=== PATIENT | female | born 1955 | race Caucasian/White ===

== ENCOUNTER 2019-01-01 10:30 | Outpatient (RCR) | payer BC, SELFPAY ==
--- NOTE | 2018-12-28 18:10 | HP.PTEVAL_ITS ---
Patient's Visit Information EDWARD VARGAS is a 63 year old F referred to Physical Therapy by Kel Bailey MD with a diagnosis of vertigo. Date of Evaluation: 12/28/18 Physical Therapist: Abraham Zayas DPT, OCS, CSCS - Visit Plan Frequency: 1-2x /Week Duration: 4-6 Weeks Plan: 1-2x/week for 2-4 weeks as needed. for positional treatments and reintegration of activity as needed. - Subjective Findings: 2 nights ago went to bed feeling good and woke up with spinning room after rolling onto left side. Lasted 15 seconds. Then it went away but she felt sick. Mayer drunk . Then looked up to make coffee it made her spin again which lasted 15 seconds. That has happended a dozen times in the last two days. Dry heaves. No previous history of this. Feels wrong in head in between episodes. Sleeps OK. Last episode was earlier today looking down. 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 Basic ADLs are OK with care. Hobbies: crafts and yard work btu has not been doing them. - Objective Walks I with decent balance. C/S aROM is fulla nd painfree but hesitant to look up. - R hallpike lucy. + L hallpike for up torsional nystagmus x 15 seconds. Treated wtih L Yazmin then - test. - Balance Scores Functional Gait Assessment Score: 28 % Disability: 6.6700 - Goals Goal 1:: Abolish dizzyness in bed. Goal Time Frame: 2-4 Weeks Goal 2:: Ready to return to work Goal Time Frame: 2-4 Weeks Goal 3:: Pt feel 100% better Goal Time Frame: 2-4 Weeks - Rehabilitation Potential Physical Therapy Diagnosis: BPPV L post canal Rehabilitation Potential: Good - Anticipated Interventions Patient/Client Instruction: Educate patient on: Condition, Plan of Care For the Purpose of:: To increase tolerance to activity/condition/position, To improve ability of physical actions for home/community/work/leisure Comment: postional treatments and ex For the Purpose of:: To increase tolerance to activity/condition/position Thank you for the opportunity to evaluate your patient. For Medicare and Medicare HMO plans, please review the plan of care and approve it. It will need to be FAXED BACK to us at [phone] for Medicare purposes. For Medicare only, by signing this I certify the plan of care. Please let me know if there are questions or concerns regarding this plan of care. Physician Signature: Date:
--- NOTE | 2019-02-19 15:09 | HP.PT.NRP ---
HP - Discharge Summary (1) - Patient Information EDWARD VARGAS was seen in my office for initial evaluation on 12/28/18. The following Plan of Care was established for this patient: Initial Frequency: 1-2x /Week Initial Duration: 4-6 Weeks - Anticipated Interventions Patient/Client Instruction: Educate patient on: Condition, Plan of Care For the Purpose of:: To increase tolerance to activity/condition/position, To improve ability of physical actions for home/community/work/leisure For the Purpose of:: To increase tolerance to activity/condition/position This patient was last seen in our office 01/01/19. Pertinent comments regarding their Physical therapy will appear below: Pt seen two visits for positional treatments. She was significantly better at last visit and was to f/u one more time but did not attend. At this point, it has been over 6 weeks and I will discontinue due to nonattendance. At this point I will be discontinuing this patient from physical therapy. I would be happy to see this patient again in the future if found appropriate by the physician. Thank you! Abraham Zayas, DPT, OCS, CSCS
== END 2019-01-01 19:00 | disposition home or self-care (01) ==
LOC: PT 10:30
PROVIDERS: Family Provider Physician Assistant; PCP Physician Assistant; Referring Provider Family Medicine; Visit Provider Family Medicine
DX: R42 Dizziness and giddiness (principal)
CPT/HCPCS: 97162; 97530

== ENCOUNTER 2021-05-14 13:36 | Inpatient (IN) | payer BC, MEDICARE, SELFPAY ==
[2021-05-14] VITALS (10 sets, daily range): BP systolic 99–116; BP diastolic 58–85; PULSE 84–115; RESP 13–18; TEMP 35.9–37.9; O2SAT 84–99; BMI 42.3; BMI 43.0
--- NOTE | 2021-05-14 14:00 | EKG12_ITS ---
Test Reason : ALT MENTAL Blood Pressure : / mmHG Vent. Rate : 109 BPM Atrial Rate : 109 BPM P-R Int : 132 ms QRS Dur : 082 ms QT Int : 322 ms P-R-T Axes : 060 -06 014 degrees QTc Int : 433 ms Sinus tachycardia Inferior infarct , age undetermined Cannot rule out Anterior infarct , age undetermined Abnormal ECG Confirmed by CAIT LIEBERMAN, ANTOINE ([id number]), social media editor FELISHA MCDANIEL ([id number]) on 05/18/2021 10:35:45 AM Referred By: RENAE Confirmed By:JHONNY CHAVIRA MD
--- NOTE | 2021-05-14 14:00 | RAD_ITS ---
STUDY: X-RAY CHEST REASON FOR EXAM: Female, 66 years old. Sob TECHNIQUE: Single AP portable view of the chest. COMPARISON: None. FINDINGS: EKG electrodes are seen. The lungs are clear and expanded. There is no demonstrated pleural abnormality. Normal size heart. Normal mediastinum and rachel. Normal visualized pulmonary arteries. Normal visualized aortic arch and descending thoracic aorta. There are diffuse degenerative changes of the visualized thoracic spine. Mild dextroscoliosis. Normal visualized ribs, clavicles, and shoulders. There is no demonstrated abnormality of the visualized soft tissue structures of the upper abdomen. RAD/Chest 1 View (Portable) IMPRESSION: Normal x-ray examination of the chest. Electronically Signed: Marco A Solares MD at 14:51 EDT , Service support ,
--- NOTE | 2021-05-14 14:02 | CT_ITS ---
We are attempting to reach an attending provider to discuss findings. An addendum with communication details will be sent when the communication is complete. HISTORY: hypoxia, recent surgery EXAMINATION: CTA Chest WO/W Contrast Injection TECHNIQUE: Helically acquired images were obtained of the chest following IV contrast as per pulmonary angiogram protocol with 3D reconstructions. A radiation dose optimization technique was used for this scan. IV Contrast dosage and agent: 100mL [id number]-370 COMPARISON: None FINDINGS: LUNGS, PLEURA AND LARGE AIRWAYS: Mild dependent and/or fibrotic changes without masses, consolidation, or edema. No pleural effusion or thickening. No pneumothorax. THYROID: 1.5 cm nodule left lobe thyroid, 1.3 cm nodule right lobe. PULMONARY ARTERIES: Normal in caliber. Filling defect in a segmental branch to the right upper lobe. AORTA AND GREAT VESSELS: No aneurysm or dissection. HEART AND PERICARDIUM: Heart size is normal. No pericardial effusion. No signs of right heart strain. MEDIASTINUM AND SAKSHI: No mediastinal or hilar adenopathy. Esophagus is unremarkable. No hiatal hernia. UPPER ABDOMEN: Transverse gallbladder distention 4.3 cm, no calcified gallstones. BONES: No acute or aggressive abnormality. CT/CTA Chest W/WO Contrast IMPRESSION: Study positive for pulmonary embolism. Nonspecific gallbladder distention. Consider correlation with gallbladder ultrasound. Bilateral thyroid nodules, largest 1.5 cm. Recommend routine thyroid ultrasound if not previously evaluated. Individualized dose optimization techniques were used for this CT. at 1522 Reported and signed by: Dominic Barrios MD Electronically Signed: Dominic Barrios MD at 15:21 EDT Tel , Service support ,
--- NOTE | 2021-05-14 14:03 | EDS_ITS ---
HPI History of Present Illness Chief Complaint: Alt LOC Informant: patient and EMS Onset/Context/Timing Onset: Today Narrative Narrative: Patient is a 66-year-old female that is status post left total knee performed by Dr. Martinez at [facility] on Tuesday, 3 days ago. Patient was very sleepy per her this morning. When home health came over she was sleeping in a chair and they could not arouse her. They spent 20 minutes trying to wake her up. EMS was called and patient was found to be significantly hypoxic. Patient's notes that she was very confused and out of it all morning and in and out of sleep. She does not wear oxygen normally. Patient was not given Narcan but there was concerned that maybe she took too much of her pain medication. Patient is currently on oxycodone. Patient is adamant that she did not take any extra of her pain medication. Patient denies any chest pain or shortness of breath. Nursing notes that when she falls asleep for respiratory rate diminishes and her O2 sat will drop. Patient does note that her knee felt a little warmer yesterday but denies any other complaints. She states that she is on antibiotic but she cannot recall which one. No other complaints at this time. Patient has any history of DVT or PE. [facility] Medical History (Updated 05/14/21 @ 21:[address] Elizabeth Greenfield, ) Degenerative disc disease Depression Diabetes mellitus type 2 in obese Hyperlipidemia Hypertension Osteoarthritis PUD (peptic ulcer disease) Home Medications acyclovir 400 mg PO TID 05/14/21 [History Last Taken 05/13/21] amlodipine 2.5 mg PO DAILY 05/14/21 [History Last Taken 05/13/21] aspirin 81 mg PO BID 05/14/21 [History Last Taken 1 Week Ago ~05/07/21] atorvastatin 80 mg PO QHS 05/14/21 [History Last Taken 05/13/21] baclofen 50 mg PO QHS 05/14/21 [History Last Taken 05/13/21] docusate sodium 100 mg PO BID 05/14/21 [History Last Taken 05/13/21] gabapentin 900 mg PO QHS 05/14/21 [History Last Taken 05/13/21] lisinopril-hydrochlorothiazide 1 tab PO BID 05/14/21 [History Last Taken 05/13/21] meloxicam 15 mg PO DAILY 05/14/21 [History Last Taken 05/13/21] metformin 1,000 mg PO DAILY 05/14/21 [History Last Taken 05/13/21] metformin 500 mg PO DAILY 05/14/21 [History Last Taken 05/13/21] omeprazole 40 mg PO BID 05/14/21 [History Last Taken 05/13/21] oxycodone 5 - 10 mg PO Q4H PRN 05/14/21 [History Last Taken 05/13/21] pantoprazole 40 mg PO DAILY 05/14/21 [History Last Taken 05/13/21] penicillin V potassium 500 mg PO 4X/DAY 05/14/21 [History Last Taken 05/13/21] ropinirole 0.25 mg PO BID 05/14/21 [History Last Taken Unknown] ropinirole 0.5 mg PO QHS 05/14/21 [History Last Taken 05/13/21] tizanidine 10 mg PO QHS 05/14/21 [History Last Taken 05/13/21] Allergy/AdvReac Type Severity Reaction Status Date / Time No Known Allergies Allergy Verified 05/14/21 13:42 Family History (Updated 05/14/21 @ 16:53 by Dee Cooper NP-C) Father Cancer Hypertension Sister Cancer Diabetes Mother Hypertension Diabetes Surgical History (Updated 05/14/21 @ 18:31 by Sweta De Jesus) History of left knee replacement History of tonsillectomy and adenoidectomy Social History Smoking Status: Never smoker alcohol intake: never substance use type: does not use ROS ROS ED Constitutional Constitutional ED: Denies chills or fever(s) Eyes Eyes: Denies change in vision ENT ENT ED: Denies rhinorrhea or sore throat Cardiovascular Cardiovascular: Denies chest pain or palpitations Respiratory/Chest Respiratory/Chest: Denies cough or dyspnea Gastrointestinal Gastrointestinal: Denies abdominal pain or vomiting Musculoskeletal Musculoskeletal: Reports other Details: Recent left knee surgery, normal postoperative pain reported ; Denies myalgias Integumentary Reports other Details: Slight redness and warmth around surgical site of her left knee ; Denies rash Neurologic Neurologic: Denies headache(s) or weakness Psychiatric Psychiatric: Denies anxiety or depression EXAM Physical Exam Const Vital Signs: 05/14/21 13:36 05/14/21 13:37 05/14/21 14:24 Temperature 99.7 F H Temperature Source Temporal Pulse Rate 115 H Respiratory Rate 13 Blood Pressure 99/85 H Blood Pressure Mean 89 Pulse Ox 94 84 94 Oxygen Delivery Method Nasal Cannula Room Air Nasal Cannula Oxygen Flow Rate (L/min) 3 6 05/14/21 16:15 Temperature 97.2 F L Temperature Source Temporal Pulse Rate 101 H Respiratory Rate 14 Blood Pressure 107/78 Blood Pressure Mean 87 Pulse Ox 99 Oxygen Delivery Method Room Air Oxygen Flow Rate (L/min) Positive well nourished and well developed General Appearance ED: well developed and NAD HEENT Reports moist mucous membranes Negative for trauma Eyes PERRL and EOMs intact bilaterally Eyes Narrative: No pinpoint pupils Neck supple and no JVD Chest Wall inspection of chest normal Resp normal respiratory effort and clear to auscultation bilaterally Auscultation: Negative for wheezes or diminished lung sounds Cardio regular rhythm and no murmurs Rate: tachycardic GI normal to inspection, nondistended, normoactive bowel sounds Extremity Extremity Narrative: Patient has mild tenderness and edema to her left knee associated with surgical incision from the left TKA. General Extremety ED: Yes edema General Extremity: edema Neuro oriented x3 and CN's II-XII intact bilaterally Sensorium / Orientation: alert Psych mental status grossly normal Mood & Affect: tearful Skin Skin Narrative: Surgical incision of the left knee with no associated drainage. No abnormal tenderness. Appears to be healing appropriately. There is some mild erythema medial to the incision around the knee however it is not particularly warm or tender. MDM MDM MDM Narrative Medical decision making narrative: Patient evaluated for hypoxia, confusion in the setting of her recent knee surgery. Patient arrives she has a low-grade temp and is tachycardic. Her blood pressure stable. She does not have pinpoint pupils or other signs concerning for acute opioid intoxication/overdose. Patient does have elevated creatinine at 2.63. Her high sensitive troponin is n ormal. Her BNP is normal. I's and concern for PE as the cause of her shortness of breath/hypoxia. Patient is found to have an acute PE. Given her WM as well as acute PE patient started on a heparin drip and given IV fluids. She will be admitted for further monitoring. She is requiring supplemental oxygen. Patient is agreeable with this plan of care. It is possible there could be a component of polypharmacy they contribute to her somnolence/confusion earlier however I suspect is more from her hypoxia. Lab Data Labs: Laboratory Results - last 24 hr 05/14/21 05/14/21 05/14/21 14:15 14:15 14:15 WBC 8.5 RBC 3.10 L Hgb 9.2 L Hct 29.0 L MCV 93.5 MCH 29.7 MCHC 31.7 L RDW Std Deviation 49.7 H RDW Coeff of Rex 14.6 Plt Count 251 MPV 10.2 Immature Gran % (Auto) 0.400 Neut % (Auto) 79.4 H Lymph % (Auto) 12.5 L Pleasants % (Auto) 7.2 Eos % (Auto) 0.4 Baso % (Auto) 0.1 Absolute Neuts (auto) 6.8 Absolute Lymphs (auto) 1.07 Nucleated RBC % 0 PT INR APTT Sodium 133 L Potassium 4.3 Chloride 98 Carbon Dioxide 29.0 Anion Gap 6 BUN 33 H Creatinine 2.63 H Estim Creat Clear Calc 15.32 Est GFR (MDRD) Af Amer 23 L Est GFR (MDRD) Non-Af 19 L BUN/Creatinine Ratio 12.5 Glucose 125 H Calcium 8.8 Troponin I High Sens 4.5 B-Natriuretic Peptide 20.5 05/14/21 16:15 WBC RBC Hgb Hct MCV MCH MCHC RDW Std Deviation RDW Coeff of Rex Plt Count MPV Immature Gran % (Auto) Neut % (Auto) Lymph % (Auto) Pleasants % (Auto) Eos % (Auto) Baso % (Auto) Absolute Neuts (auto) Absolute Lymphs (auto) Nucleated RBC % PT 14.4 INR 1.2 APTT 37.8 H Sodium Potassium Chloride Carbon Dioxide Anion Gap BUN Creatinine Estim Creat Clear Calc Est GFR (MDRD) Af Amer Est GFR (MDRD) Non-Af BUN/Creatinine Ratio Glucose Calcium Troponin I High Sens B-Natriuretic Peptide Radiography Diagnostic Testing: Radiology Impression Chest X-Ray 05/14/21 14:00 IMPRESSION: Normal x-ray examination of the chest. Electronically Signed: Marco A Solares MD at 14:51 EDT , Service support , Chest CTA 05/14/21 14:02 IMPRESSION: Study positive for pulmonary embolism. Nonspecific gallbladder distention. Consider correlation with gallbladder ultrasound. Bilateral thyroid nodules, largest 1.5 cm. Recommend routine thyroid ultrasound if not previously evaluated. Individualized dose optimization techniques were used for this CT. at 1522 Reported and signed by: Dominic Barrios MD Electronically Signed: Dominic Barrios MD at 15:21 EDT Tel , Service support , ADDENDUM: 05/14/21 1559 IMPRESSION: Study positive for pulmonary embolism. Nonspecific gallbladder distention. Consider correlation with gallbladder ultrasound. Bilateral thyroid nodules, largest 1.5 cm. Recommend routine thyroid ultrasound if not previously evaluated. Individualized dose optimization techniques were used for this CT. at 1522 Reported and signed by: Dominic Barrios MD N.B. : The above Results were Read Back by Dominic Barrios MD to Dr. Elizabeth Greenfield MD, and understanding confirmed on 05/14/2021 15:52:10 (ET). Electronically Signed: Dominic Barrios MD at 15:21 EDT Tel , Service support , Rhythm Strip Rhythm Strip: Sinus Tach Rate: 109 Ectopy: None EKG Initial EKG: Attestation: I personally reviewed and interpreted this EKG as follows: Interpretation: Sinus Tachycardia Comments: Sinus tachycardia at a rate of 109 Slight left axis deviation Normal intervals Nonspecific T wave inversion in lead III Discharge Plan Dx/Rx/DC Orders Clinical Impression: Pulmonary embolism on right, Acute kidney injury Disposition Disposition: Acute Care Hospital [facility] Discharge Date/Time: 05/14/21 16:57
[2021-05-14 14:25] LABS: Absolute Lymphocyte Count 1.07 X10^3/uL (0.83-4.51); Absolute Neutrophil Count 6.8 X10^3/uL (2.0-7.7); Basophil# 0.01 X10^3/uL; Basophil% 0.1 % (0-1); Eosinophil# 0.03 X10^3/uL; Eosinophils% 0.4 % (0-5); Hemoglobin 9.2 g/dL (12.0-15.0); Lymphocyte # 1.07 X10^3/ul (0.83-4.51); Lymphocyte % 12.5 % (19-41); Mean Corp Hgb Conc 31.7 g/dL (32-36); Mean Corpuscular Hgb 29.7 pg (27.0-32.0); Mean Corpuscular Volume 93.5 fL (81-99); Mean Platelet Vol. 10.2 fl (6.2-12.0); Monocyte# 0.61 X10^3/uL; Monocyte% 7.2 % (0-10); NRBC Flagged by Analyzer 0 % (0-5); Neutrophil # 6.78 X10^3/uL (2.7-7.7); Neutrophil % 79.4 % (47-70); Platelet Count 251 K/mm3 (150-450); RBC Distribution Width CV 14.6 % (11.6-14.6); RBC Distribution Width SD 49.7 fl (35.1-43.9); White Blood Count 8.5 K/mm3 (4.4-11.0)
[2021-05-14] MEDS: 0.9% Normal Saline 1,000 ML 999 ML IV (14:26)
[2021-05-14 14:42] LABS: BNP,B-Type NATRIURETIC PEPTIDE 20.5 pg/mL (0-100)
[2021-05-14 14:43] LABS: Anion Gap 6 (5-15); BUN 33 mg/dL (7-18); BUN/Creat Ratio 12.5 RATIO (10-20); Calcium,Total 8.8 mg/dL (8.5-10.1); Chloride 98 mmol/L (98-107); Creatinine, Serum 2.63 mg/dL (0.55-1.02); EST Glomerular Filtration Rate 19 mL/min (>60); Est Glom Filt Rate - Afr Amer 23 mL/min (>60); Estimated Creatinine Clearance 15.32 ml/min; Glucose 125 mg/dL (74-106); Potassium 4.3 mmol/L (3.5-5.1); Sodium Level 133 mmol/L (136-145); Troponin-I HS 4.5 pg/mL (3.0-53.7)
[2021-05-14] MEDS: Heparin Injection (Vial) 5,000 UNIT/ML VIAL 4000 UNIT IV (16:04)
[2021-05-14] MEDS: HEPARIN/D5w 25,000 UNITS 25,000 UNITS/250 ML IV.SOLN. 10 UNITS IV (16:11)
[2021-05-14 16:35] LABS: International Normalized Ratio 1.2; Partial Thromboplast Time 37.8 Seconds (24.1-36.2); Prothrombin Time (Protime)PT. 14.4 SECONDS (11.7-14.9)
--- NOTE | 2021-05-14 16:45 | HP.PCM_ITS ---
Documented by User: OPHELIA Nielsen 05/14/21 17:11 HPI - General General Date of Admission: 05/14/21 Date of Service: 05/14/21 Chief Complaint: Altered mental status HPI Narrative EDWARD VARGAS, is a 66 F who presents with family reports that patient was unresponsive for approximately 20 minutes. Patient underwent left knee surgery 05/11/[address] [facility] with Dr. Cox. Patient states that she has been taking her oxycodone that was prescribed postoperatively appropriately and not taking extra doses. Patient does not remember what happened. Patient family reports that patient had been doing fine until this morning. Upon EMS arrival patient was noted to be severely hypoxic, patient does not have history of respiratory issues and is not on O2 chronically. Patient denies chest pain s hortness of breath. Patient states that she has noticed that her knee has been a little warm and red starting yesterday. Patient is noted to be on penicillin however this was for an infected tooth and not for anything related to the surgery. [facility] Medical History CAD (coronary artery disease) Degenerative disc disease Depression Diabetes mellitus type 2 in obese Hyperlipidemia Hypertension Home Medications acyclovir 400 mg PO TID 05/14/21 [History Last Taken 05/13/21] amlodipine 2.5 mg PO DAILY 05/14/21 [History Last Taken 05/13/21] aspirin 81 mg PO BID 05/14/21 [History Last Taken 1 Week Ago ~05/07/21] atorvastatin 80 mg PO QHS 05/14/21 [History Last Taken 05/13/21] baclofen 50 mg PO QHS 05/14/21 [History Last Taken 05/13/21] docusate sodium 100 mg PO BID 05/14/21 [History Last Taken 05/13/21] gabapentin 900 mg PO QHS 05/14/21 [History Last Taken 05/13/21] lisinopril-hydrochlorothiazide 1 tab PO BID 05/14/21 [History Last Taken 05/13/21] meloxicam 15 mg PO DAILY 05/14/21 [History Last Taken 05/13/21] metformin 1,000 mg PO DAILY 05/14/21 [History Last Taken 05/13/21] metformin 500 mg PO DAILY 05/14/21 [History Last Taken 05/13/21] omeprazole 40 mg PO BID 05/14/21 [History Last Taken 05/13/21] oxycodone 5 - 10 mg PO Q4H PRN 05/14/21 [History Last Taken 05/13/21] pantoprazole 40 mg PO DAILY 05/14/21 [History Last Taken 05/13/21] penicillin V potassium 500 mg PO 4X/DAY 05/14/21 [History Last Taken 05/13/21] ropinirole 0.25 mg PO BID 05/14/21 [History Last Taken Unknown] ropinirole 0.5 mg PO QHS 05/14/21 [History Last Taken 05/13/21] tizanidine 10 mg PO QHS 05/14/21 [History Last Taken 05/13/21] Allergy/AdvReac Type Severity Reaction Status Date / Time No Known Allergies Allergy Verified 05/14/21 13:42 Family History (Updated 05/14/21 @ 16:53 by Dee Cooper, HISTOLOGY SUPERVISOR-C) Father Cancer Hypertension Sister Cancer Diabetes Mother Hypertension Diabetes Surgical History History of left knee replacement Social History Smoking Status: Never smoker alcohol intake: never substance use type: does not use ROS Constitutional Constitutional: Denies anorexia, chills, fatigue, fever(s) or weakness Cardiovascular Cardiovascular: Denies chest pain, edema or palpitations Respiratory/Chest Respiratory/Chest: Denies cough, shortness of breath at rest or shortness of breath with exertion Gastrointestinal Gastrointestinal: Denies abdominal pain, constipation, diarrhea, nausea or vomiting Genitourinary Genitourinary: Denies dysuria Musculoskeletal Musculoskeletal: Reports joint pain and muscle spasms; Denies back pain Integumentary Integumentary: Denies dry skin Neurologic Neurologic: Reports confusion; Denies abnormal gait, abnormal speech, dizziness or focal weakness Psychiatric Psychiatric: Reports depression; Denies anxiety Endocrine Endocrinology: Reports change in body appearance Hematologic/Lymphatic Hematologic/Lymphatic: Denies easy bleeding or easy bruising Vital Signs Vital Signs Vital Signs: 05/14/21 13:36 05/14/21 13:37 05/14/21 14:24 Temperature 99.7 F H Temperature Source Temporal Pulse Rate 115 H Respiratory Rate 13 Blood Pressure 99/85 H Blood Pressure Mean 89 Pulse Ox 94 84 94 Oxygen Delivery Method Nasal Cannula Room Air Nasal Cannula Oxygen Flow Rate (L/min) 3 6 05/14/21 16:15 Temperature 97.2 F L Temperature Source Temporal Pulse Rate 101 H Respiratory Rate 14 Blood Pressure 107/78 Blood Pressure Mean 87 Pulse Ox 99 Oxygen Delivery Method Room Air Oxygen Flow Rate (L/min) Weight Weight: 216 lb 7.903 oz Body Mass Index (BMI) 42.3 Physical Exam Const alert, oriented x3 and no apparent distress General Appearance: cooperative HEENT normocephalic and head/scalp atraumatic Eyes conjunctivae normal and no scleral icterus Neck supple and no JVD General: trachea midline Resp normal respiratory effort, normal air movement and clear to auscultation bilaterally Cardio regular rate, regular rhythm, S1 normal heart sound and S2 normal heart sound GI normal to inspection, nondistended, normoactive bowel sounds, soft to palpation and non-tender Extremity normal capillary refill and no clubbing, cyanosis or edema General Extremity: no tenderness to palpation of joints or extremities Skin General Skin Exam: turgor normal Lesions: no lesions Rashes: no rashes Wounds: wounds noted wild, surrounding erythema and other Postsurgical dressing dry and intact Neuro no focal motor deficits and no sensory deficits noted Speech: speech normal Motor Exam: Negative for general weakness Psych thought process normal and cooperative Mood & Affect: anxious Results Lab / Micro Data Result Diagrams: 05/14/21 14:15 05/14/21 14:15 Labs: Laboratory Results - last 24 hr 05/14/21 14:15: WBC 8.5, RBC 3.10 L, Hgb 9.2 L, Hct 29.0 L, MCV 93.5, MCH 29.7, MCHC 31.7 L, RDW Std Deviation 49.7 H, RDW Coeff of Rex 14.6, Plt Count 251, MPV 10.2, Immature Gran % (Auto) 0.400, Neut % (Auto) 79.4 H, Lymph % (Auto) 12.5 L, Stark % (Auto) 7.2, Eos % (Auto) 0.4, Baso % (Auto) 0.1, Absolute Neuts (auto) 6.8, Absolute Lymphs (auto) 1.07, Nucleated RBC % 0 05/14/21 14:15: Sodium 133 L, Potassium 4.3, Chloride 98, Carbon Dioxide 29.0, Anion Gap 6, BUN 33 H, Creatinine 2.63 H, Estim Creat Clear Calc 15.32, Est GFR (MDRD) Af Amer 23 L, Est GFR (MDRD) Non-Af 19 L, BUN/Creatinine Ratio 12.5, Glucose 125 H, Calcium 8.8, Troponin I High Sens 4.5 05/14/21 14:15: B-Natriuretic Peptide 20.5 05/14/21 16:15: PT 14.4, INR 1.2, APTT 37.8 H Rhythm Strip Rhythm Strip: Sinus Tach Rate: 109 Ectopy: None Radiology Impression Chest X-Ray 05/14/21 14:00 IMPRESSION: Normal x-ray examination of the chest. Electronically Signed: Marco A Sloares MD at 14:51 EDT , Service support , Chest CTA 05/14/21 14:02 IMPRESSION: Study positive for pulmonary embolism. Nonspecific gallbladder distention. Consider correlation with gallbladder ultrasound. Bilateral thyroid nodules, largest 1.5 cm. Recommend routine thyroid ultrasound if not previously evaluated. Individualized dose optimization techniques were used for this CT. at 1522 Reported and signed by: Dominic Barrios MD Electronically Signed: Dominic Barrios MD at 15:21 EDT Tel , Service support , ADDENDUM: 05/14/21 1559 IMPRESSION: Study positive for pulmonary embolism. Nonspecific gallbladder distention. Consider correlation with gallbladder ultrasound. Bilateral thyroid nodules, largest 1.5 cm. Recommend routine thyroid ultrasound if not previously evaluated. Individualized dose optimization techniques were used for this CT. at 1522 Reported and signed by: Dominic Barrios MD N.B. : The above Results were Read Back by Dominic Bariros MD to Dr. Elizabeth Greenfield MD, and understanding confirmed on 05/14/2021 15:52:10 (ET). Electronically Signed: Dominic Barrios MD at 15:21 EDT Tel , Service support , Assessment & Plan Assessment/Plan (1) Pulmonary embolism on right: (2) Acute kidney injury: PLAN: 1. Pulmonary embolism on right -Admit to PCU for cardiac monitoring -Heparin drip initiated in ER will continue, PTT per protocol -Encourage incentive spirometry -PT and OT to eval and treat, patient was receiving PT OT at home due to left total knee complete on 05/11/2021 -Oxygen per protocol patient currently on 2 L nasal cannula -Daily CBC and CMP 2. Acute kidney injury -Consult nephrology, case discussed with Dr. Johnson -Daily CMP, trend -Per labs obtained preoperatively 05/11/2021 patient BUN and creatinine normal at that time, BUN 20/creatinine 0.80 -Normal saline 60 mL/h ordered -Will hold nephrotoxic medications including hydrochlorothiazide, lisinopril, meloxicam, Metformin and tizanidine. Alterations in dosing made to baclofen, gabapentin, oxycodone as well. 3. Hypertension -As stated above due to WM will antihypertensives at this time, as needed hydralazine ordered -Vital signs per protocol, trend BP and heart rate 4. Diabetes mellitus type 2 -As stated above due to WM we will hold Metformin -AC at bedtime blood sugars with sliding scale insulin ordered 5. Back muscle spasms -Result of failed previous back surgery, due to WM alterations in antispastic's and neuropathic meds made. Once WM is resolved with encourage reevaluation of these medications and dosages. DVT prophylaxis-SCDs, patient on heparin drip This patient was seen by OPHELIA Nielsen under the supervision of Dr. Angel santos. Documented by User: Dr. Werner Ramirez MD 05/14/21 17:32 HPI - General General Date of Admission: 05/14/21 Date of Service: 05/14/21 HPI Narrative There is a 66-year-old female was brought in by EMS and she could not wake up for physical therapy. She was found snoring heavy and pulse ox in 60s. She was found significantly confused and hypoxic and was put on oxygen. He slowly woke up. As per ER physician decided not to get Narcan. She further said she did not had oxycodone, last dose was yesterday morning and she kept it after physic al therapy but before that she was almost out. She takes heavy dose of baclofen 50 mg at at bedtime, tizanidine, gabapentin and other medications. She has history of back surgery and recently had left knee replacement on past Tuesday in [facility]. In ED, she had CTPA which showed right upper lobe segmental PE. She is also found BUN/creatinine 33/2.63. As per patient her BUN/creatinine was normal prior to surgery. Actually it was 20/0.8 on 05/12/2021 therefore WM. Patient f mariangel states she was drinking less water as it did not have to get up for bathroom. Denies fever or chills. [facility] Medical History CAD (coronary artery disease) Degenerative disc disease Depression Diabetes mellitus type 2 in obese Hyperlipidemia Hypertension Home Medications acyclovir 400 mg PO TID 05/14/21 [History Last Taken 05/13/21] amlodipine 2.5 mg PO DAILY 05/14/21 [History Last Taken 05/13/21] aspirin 81 mg PO BID 05/14/21 [History Last Taken 1 Week Ago ~05/07/21] atorvastatin 80 mg PO QHS 05/14/21 [History Last Taken 05/13/21] baclofen 50 mg PO QHS 05/14/21 [History Last Taken 05/13/21] docusate sodium 100 mg PO BID 05/14/21 [History Last Taken 05/13/21] gabapentin 900 mg PO QHS 05/14/21 [History Last Taken 05/13/21] lisinopril-hydrochlorothiazide 1 tab PO BID 05/14/21 [History Last Taken 05/13/21] meloxicam 15 mg PO DAILY 05/14/21 [History Last Taken 05/13/21] metformin 1,000 mg PO DAILY 05/14/21 [History Last Taken 05/13/21] metformin 500 mg PO DAILY 05/14/21 [History Last Taken 05/13/21] omeprazole 40 mg PO BID 05/14/21 [History Last Taken 05/13/21] oxycodone 5 - 10 mg PO Q4H PRN 05/14/21 [History Last Taken 05/13/21] pantoprazole 40 mg PO DAILY 05/14/21 [History Last Taken 05/13/21] penicillin V potassium 500 mg PO 4X/DAY 05/14/21 [History Last Taken 05/13/21] ropinirole 0.25 mg PO BID 05/14/21 [History Last Taken Unknown] ropinirole 0.5 mg PO QHS 05/14/21 [History Last Taken 05/13/21] tizanidine 10 mg PO QHS 05/14/21 [History Last Taken 05/13/21] Allergy/AdvReac Type Severity Reaction Status Date / Time No Known Allergies Allergy Verified 05/14/21 13:42 Family History (Updated 05/14/21 @ 16:53 by Dee Cooper HISTOLOGY SUPERVISOR-C) Father Cancer Hypertension Sister Cancer Diabetes Mother Hypertension Diabetes Surgical History History of left knee replacement Social History Smoking Status: Never smoker alcohol intake: never substance use type: does not use Physical Exam Narrative Physical exam General: Alert, Oriented x3, Cooperative HEENT: Atraumatic, PERRLA, EOMI, Normocephalic Oral: No Gingival or Mucosal Lesions/ Ulcerations Neck: Supple, No JVD, Negative Carotid Bruits Lungs: Air entry diminished in bilateral lung bases. No crepitation/rhonchi Cardiovascular: Regular rate, Regular Rhythm, Normal S1, Normal S2, No murmurs Abdomen: Bowel Sounds Present, Soft, Non Tender, Non-Distended : No renal angle tenderness. No suprapubic tenderness. Extremities: Left TKR. Dressing is intact. No warmth or discharge from the operative site. Mild edema on lower legs, Capillary Refill Less than 3 Seconds Skin: No rashes, No breakdown Musculoskeletal/spine: Tenderness present on the lumbar spine. Spine surgery in the past Neurological: Cranial nerves II-XII grossly intact, Deep Tendon Reflexes 2+/4 and Symmetrical, Neuro grossly intact Psych/Mental Status: Anxious personality Results Lab / Micro Data Result Diagrams: 05/14/21 14:15 05/14/21 14:15 Assessment & Plan Assessment/Plan (1) Pulmonary embolism on right: (2) Acute kidney injury: PLAN: This patient was seen in conjunction with BLANE Price. I have independently interviewed and examined the patient and reviewed pertinent history, examination findings, laboratory and plan of management. I have reviewed the note and agree with the documented findings with the few additional points. In brief, patient is needed for acute encephalopathy probably from high dose of muscle relaxant and sedating medications. At home she is on tizanidine 10 mg nightly, ropinirole, gabapentin 900 mg nightly, baclofen 50 mg nightly and she claims she takes it for the back otherwise she cannot sleep. She is also on oxycodone 5 to 10 mg every 4 hourly as needed given after knee surgery. I told him we have to reduce the dose of muscle relaxant but patient was sedated. CTPA shows right upper lobe segmental PE. Started on IV heparin. Patient found WM probably prerenal. Started on IV fluid normal saline at 60/h after she got bolus 1 L in ED. Insolvency Consultant consulted. Family was discussed about possibility of SMITA and will try to control it. Other comorbidities as mentioned above Living will/advanced directive/end of life care: Patient does not have living will or advanced directive. After discussion of benefits/risks procedures involved with full code, DNR CC arrest and DNR CC, the patient opted for full code Patient does want artificial life support including intubation, tube feed, ventilator and/chest compression, central venous catheter, vasopressor and DC shock if needed Total time spent in [id number] encounter in discussion of advanced directive 16 minutes. I have discussed my assessment with BLANE Price and orders have been reviewed. Charges/Coding Visit Charges Inpatient E&M: 77217 Init Hosp L3 Procedures Hospitalists Procedures: 10754 Advncd Care Plan 30 Min
[2021-05-14] MEDS: 0.9% Normal Saline 1,000 ML 60 ML IV (18:54)
[2021-05-14] MEDS: Baclofen 10 MG Tablet 20 MG PO (21:50)
[2021-05-14] MEDS: Atorvastatin Calcium 80 MG Tablet PO (21:50)
[2021-05-14] MEDS: Gabapentin 300 MG Capsule PO (21:50)
[2021-05-14] MEDS: Docusate Sodium 100 MG Capsule PO (21:51)
[2021-05-14] MEDS: Pantoprazole Sodium 40 MG Tablet PO (21:51)
[2021-05-14] MEDS: Pramipexole Di-HCl 0.25 MG Tablet PO (21:51)
[2021-05-14] MEDS: Acetaminophen 325 MG Tablet 650 MG PO (21:51)
[2021-05-14 22:31] LABS: Bedside Glucose 149 mg/dL (70-110)
[2021-05-14 22:31] LABS: Partial Thromboplast Time 96.4 Seconds (24.1-36.2)
[2021-05-15] VITALS (9 sets, daily range): BP systolic 120–151; BP diastolic 64–83; PULSE 81–100; RESP 18–20; TEMP 36.7–36.9; O2SAT 91–99
[2021-05-15] MEDS: Acetaminophen 325 MG Tablet 650 MG PO (04:25)
[2021-05-15 04:43] LABS: Absolute Lymphocyte Count 1.67 X10^3/uL (0.83-4.51); Absolute Neutrophil Count 4.4 X10^3/uL (2.0-7.7); Basophil# 0.01 X10^3/uL; Basophil% 0.1 % (0-1); Eosinophil# 0.15 X10^3/uL; Eosinophils% 2.2 % (0-5); Hematocrit 27.8 % (37-47); Hemoglobin 8.8 g/dL (12.0-15.0); Lymphocyte # 1.67 X10^3/ul (0.83-4.51); Lymphocyte % 24.4 % (19-41); Mean Corp Hgb Conc 31.7 g/dL (32-36); Mean Corpuscular Hgb 29.7 pg (27.0-32.0); Mean Corpuscular Volume 93.9 fL (81-99); Mean Platelet Vol. 10.3 fl (6.2-12.0); Monocyte# 0.57 X10^3/uL; Monocyte% 8.3 % (0-10); NRBC Flagged by Analyzer 0 % (0-5); Neutrophil # 4.43 X10^3/uL (2.7-7.7); Neutrophil % 64.7 % (47-70); Platelet Count 227 K/mm3 (150-450); RBC Distribution Width CV 14.4 % (11.6-14.6); RBC Distribution Width SD 49.5 fl (35.1-43.9); Red Blood Count 2.96 M/mm3 (4.2-5.4); White Blood Count 6.9 K/mm3 (4.4-11.0)
[2021-05-15 04:53] LABS: Partial Thromboplast Time 42.1 Seconds (24.1-36.2)
[2021-05-15 05:09] LABS: ALB/GLOB Ratio 0.6 RATIO (0.9-2.4); AST(SGOT) 20 U/L (15-37); Alanine Aminotransfer ALT/SGPT 10 U/L (13-56); Albumin, Serum 2.4 g/dL (3.2-5.0); Alkaline Phosphatase 75 U/L (45-117); Anion Gap 6 (5-15); BUN 27 mg/dL (7-18); BUN/Creat Ratio 16.4 RATIO (10-20); Calcium,Total 8.4 mg/dL (8.5-10.1); Chloride 105 mmol/L (98-107); Creatinine, Serum 1.65 mg/dL (0.55-1.02); EST Glomerular Filtration Rate 33 mL/min (>60); Est Glom Filt Rate - Afr Amer 40 mL/min (>60); Estimated Creatinine Clearance 51.52 ml/min; Globulin 3.9 g/dL (2.2-4.2); Glucose 130 mg/dL (74-106); Potassium 4.2 mmol/L (3.5-5.1); Protein, Total 6.3 g/dL (6.4-8.2); Sodium Level 139 mmol/L (136-145)
[2021-05-15 06:55] LABS: Bedside Glucose 127 mg/dL (70-110)
--- NOTE | 2021-05-15 09:11 | DCINST_ITS ---
Discharge Instructions Diet Discharge Diet: Low fat / Low cholesterol and 2000 mg Sodium Diet Activity Weight Bearing Status: Weight bearing as tolerated Dressing / Incision Call your doctor if you observe: Fever of 101 or Higher, Coldness, Increased Pain, Numbness or Tingling, Change in Color, Inability to urinate, Inability to have a bowel movement, Shortness of breath, Dizziness, Fainting spells, Swelling in the ankles, Chest pain, Prolonged hiccupping, Increased palpitations (irregular heartbeat), Calf discomfort and Uncontrolled pain Follow Up Care Test Results: Test results from this visit will be discussed in further detail at your follow-up appointment, if applicable. Discharge Plan Admission Admit Date/Time: 05/14/21 16:45 Primary Reason for Your Visit: Right upper lobe segmental PE Attending Provider: Werner Ramirez Primary Care Provider: Eden Shankar Consulting Providers: Mayela Johnson Discharge Orders/Prescriptions Prescriptions: New Eliquis 5 mg tablet 5 mg PO BID Qty: 74 RF: 0 Continued atorvastatin 80 mg tablet 80 mg PO QHS RF: 0 penicillin V potassium 500 mg tablet 500 mg PO 4X/DAY RF: 0 amlodipine 2.5 mg tablet 2.5 mg PO DAILY RF: 0 docusate sodium 100 mg capsule 100 mg PO BID RF: 0 oxycodone 5 mg tablet 5 - 10 mg PO Q4H PRN (Reason: Pain) RF: 0 ropinirole 0.25 mg tablet 0.25 mg PO BID RF: 0 omeprazole 40 mg capsule,delayed release(DR/EC) 40 mg PO BID Qty: 60 RF: 0 Changed acyclovir 400 mg tablet 200 mg PO TID Qty: 0 RF: 0 ropinirole 0.25 mg tablet 0.25 mg PO QHS Qty: 0 RF: 0 baclofen 10 mg tablet 20 mg PO QHS Qty: 0 RF: 0 gabapentin 300 mg capsule 300 mg PO QHS Qty: 0 RF: 0 Held lisinopril-hydrochlorothiazide 20-12.5 mg tablet 1 tab PO BID RF: 0 Hold Instructions: Hold for 1 week and follow with PCP/assistant merchandiser with BMP and do accordingly meloxicam 15 mg tablet 15 mg PO DAILY RF: 0 Hold Instructions: Hold for 1 week and follow with PCP/assistant merchandiser with BMP and do accordingly metformin 1,000 mg tablet 500 mg PO DAILY RF: 0 Hold Instructions: Hold for 1 week and follow with PCP/assistant merchandiser with BMP and do accordingly metformin 1,000 mg tablet 1,000 mg PO DAILY RF: 0 Hold Instructions: Hold for 1 week and follow with PCP/assistant merchandiser with BMP and do accordingly Discontinued tizanidine 4 mg tablet 10 mg PO QHS RF: 0 aspirin 81 mg tablet,delayed release (DR/EC) 81 mg PO BID RF: 0 pantoprazole 40 mg tablet,delayed release (DR/EC) 40 mg PO DAILY RF: 0 Referrals / Follow Up: Eden Shankar PA [Primary Care Provider] -
--- NOTE | 2021-05-15 09:11 | DS.PCM_ITS ---
Providers Date of Admission: 05/14/21 Primary Care Physician: KATHY Canela Consultations 05/14/21 15:58 Consult: Nephrology Routine Consulting Provider: Mayela Johnson Reason for Consult: ckd 4 or WM? Had contrast for CTPA EMERGENT Consult: No MD Notified: Yes Date Notified: 05/14/21 Time Notified: 15:58 Method of Notification: Verbal Reason For Visit: WM / PE Diagnosis Discharge Diagnosis (1) Pulmonary embolism on right: Status: Acute Code(s): I26.99 - Other pulmonary embolism without acute cor pulmonale (2) Acute kidney injury: Status: Acute Code(s): N17.9 - Acute kidney failure, unspecified Medications at Discharge Home Medications amlodipine 2.5 mg PO DAILY 05/14/21 atorvastatin 80 mg PO QHS 05/14/21 docusate sodium 100 mg PO BID 05/14/21 lisinopril-hydrochlorothiazide 1 tab PO BID 05/14/21 meloxicam 15 mg PO DAILY 05/14/21 metformin 1,000 mg PO DAILY 05/14/21 metformin 500 mg PO DAILY 05/14/21 oxycodone 5 - 10 mg PO Q4H PRN 05/14/21 penicillin V potassium 500 mg PO 4X/DAY 05/14/21 ropinirole 0.25 mg PO BID 05/14/21 acyclovir 200 mg PO TID #0 tab 05/15/21 apixaban [Eliquis] 5 mg PO BID #74 tab 05/15/21 baclofen 20 mg PO QHS #0 tab 05/15/21 gabapentin 300 mg PO QHS #0 cap 05/15/21 omeprazole 40 mg PO BID #60 cap 05/15/21 ropinirole 0.25 mg PO QHS #0 tab 05/15/21 Hospital Course Summary of Care Provided Hospital Course: The patient was admitted for altered mental status/unresponsive episode of about 20 minutes found by healthcare home physical therapist. She was also found hypoxic with pulse ox in 60s. Patient prior creatinine 0.8 on 04/[address] angiogram in ER and found to have right upper lobe PE. Basic labs revealed creatinine was elevated 2.63 but normal potassium consistent with acute kidney injury prerenal etiology. BUN 33. Patient was admitted in PCU. Started on IV heparin. Patient has unresponsive/acute encephalopathy state from high dose of muscle relaxant and sedating medications. At home she is on tizanidine 10 mg nightly, ropinirole, gabapentin 900 mg nightly, baclofen 50 mg nightly and she claims she takes it for the back otherwise she cannot sleep. She is also on oxycodone 5 to 10 mg every 4 hourly as needed given after knee surgery. Baclofen dose was decreased to 20 mg at night and gabapentin to 300 mg at further unresponsive episode and also for decreased creatinine clearance. Tizanidine discontinued. Patient had 1 L of normal saline bolus and continued 16/h. Education Analyst co nsulted. Family was discussed about possibility of SMITA but creatinine improved to 1.65. BUN 27. Advised to follow-up with [facility] in 1 week with public health program manager. Heparin changed to Eliquis after discussion with pharmacist. Prescription given. Patient also has multiple comorbidities which include diabetes mellitus type 2, chronic back pain with muscle spasm, hypertension and morbid obesity. Stable Discharge medication reconciliation done. Discharge follow-up instructions completed. Discharge process discussed with the patient and all questions were answered to patient's satisfaction. Discharge home with home physical therapy. Follow-up orthopedic surgeon in 1 week. Total time spent, exact 35 minutes on discharge meds reconciliation, examination, coordination of care with nurses and ancillary staff, review of imaging and blood test and discussion with the patient on follow-up instruct ions Physical Exam Narrative Seen and examined. Patient is pleased that she slept well on the lower dose of baclofen 20 mg. She was advised not to take tizanidine. Avoid taking oxycodone, anxiolytic, muscle relaxant at same time General: Alert, Oriented x3, Cooperative HEENT: Atraumatic, PERRLA, EOMI, Normocephalic Oral: No Gingival or Mucosal Lesions/ Ulcerations Neck: Supple, No JVD, Negative Carotid Bruits Lungs: Air entry diminished in bilateral lung bases. No crepitation/rhonchi Cardiovascular: Regular rate, Regular Rhythm, Normal S1, Normal S2, No murmurs Abdomen: Bowel Sounds Present, Soft, Non Tender, Non-Distended : No renal angle tenderness. No suprapubic tenderness. Extremities: Left TKR. Dressing is intact. No warmth or discharge from the operative site. Mild edema on lower legs, Capillary Refill Less than 3 Seconds Skin: No rashes, No breakdown Musculoskeletal/spine: Tenderness present on the lumbar spine. Neurological: Cranial nerves II-XII grossly intact, Deep Tendon Reflexes 2+/4 an d Symmetrical, Neuro grossly intact Psych/Mental Status: Appropriate. Weight / BMI Weight Weight: 211 lb 10.3 oz Body Mass Index (BMI) 43.0 ABG / Lab / Microbiology Data Result Diagrams: 05/15/21 04:36 05/15/21 04:36 Laboratory: Laboratory Results - last 24 hr 05/14/21 14:15: WBC 8.5, RBC 3.10 L, Hgb 9.2 L, Hct 29.0 L, MCV 93.5, MCH 29.7, MCHC 31.7 L, RDW Std Deviation 49.7 H, RDW Coeff of Rex 14.6, Plt Count 251, MPV 10.2, Immature Gran % (Auto) 0.400, Neut % (Auto) 79.4 H, Lymph % (Auto) 12.5 L , [place] % (Auto) 7.2, Eos % (Auto) 0.4, Baso % (Auto) 0.1, Absolute Neuts (auto) 6.8, Absolute Lymphs (auto) 1.07, Nucleated RBC % 0 05/14/21 14:15: Sodium 133 L, Potassium 4.3, Chloride 98, Carbon Dioxide 29.0, Anion Gap 6, BUN 33 H, Creatinine 2.63 H, Estim Creat Clear Calc 15.32, Est GFR (MDRD) Af Amer 23 L, Est GFR (MDRD) Non-Af 19 L, BUN/Creatinine Ratio 12.5, Glucose 125 H, Calcium 8.8, Troponin I High Sens 4.5 05/14/21 14:15: B-Natriuretic Peptide 20.5 05/14/21 16:15: PT 14.4, INR 1.2, APTT 37.8 H 05/14/21 21:37: POC Glucose 149 H 05/14/21 22:04: APTT 96.4 H* 05/15/21 04:36: WBC 6.9, RBC 2.96 L, Hgb 8.8 L, Hct 27.8 L, MCV 93.9, MCH 29.7, MCHC 31.7 L, RDW Std Deviation 49.5 H, RDW Coeff of Rex 14.4, Plt Count 227, MPV 10.3, Immature Gran % (Auto) 0.300, Neut % (Auto) 64.7, Lymph % (Auto) 24.4, [place] % (Auto) 8.3, Eos % (Auto) 2.2, Baso % (Auto) 0.1, Absolute Neuts (auto) 4.4, Absolute Lymphs (auto) 1.67, Nucleated RBC % 0 05/15/21 04:36: Sodium 139, Potassium 4.2, Chloride 105, Carbon Dioxide 28.0, Anion Gap 6, BUN 27 H, Creatinine 1.65 H, Estim Creat Clear Calc 51.52, Est GFR (MDRD) Af Amer 40 L, Est GFR (MDRD) Non-Af 33 L, BUN/Creatinine Ratio 16.4, Glucose 130 H, Calcium 8.4 L, Total Bilirubin 0.60, AST 20, ALT 10 L, Alkaline Phosphatase 75, Total Protein 6.3 L, Albumin 2.4 L, Globulin 3.9, Albumin/Globulin Ratio 0.6 L 05/15/21 04:36: APTT 42.1 H 05/15/21 06:45: POC Glucose 127 H Radiography Diagnostic Testing: Radiology Impression Chest X-Ray 05/14/21 14:00 IMPRESSION: Normal x-ray examination of the chest. Electronically Signed: Marco A Solares MD at 14:51 EDT , Service support , Chest CTA 05/14/21 14:02 IMPRESSION: Study positive for pulmonary embolism. Nonspecific gallbladder distention. Consider correlation with gallbladder ultrasound. Bilateral thyroid nodules, largest 1.5 cm. Recommend routine thyroid ultrasound if not previously evaluated. Individualized dose optimization techniques were used for this CT. at 1522 Reported and signed by: Dominic Barrois MD Electronically Signed: Dominic Barrios MD at 15:21 EDT Tel , Service support , ADDENDUM: 05/14/21 1559 IMPRESSION: Study positive for pulmonary embolism. Nonspecific gallbladder distention. Consider correlation with gallbladder ultrasound. Bilateral thyroid nodules, largest 1.5 cm. Recommend routine thyroid ultrasound if not previously evaluated. Individualized dose optimization techniques were used for this CT. at 1522 Reported and signed by: Dominic Barrios MD N.B. : The above Results were Read Back by Dominic Barrios MD to Dr. Elizabeth Greenfield MD, and understanding confirmed on 05/14/2021 15:52:10 (ET). Electronically Signed: Dominic Barrios MD at 15:21 EDT Tel , Service support , Meaningful Use Info Meaningful Use Diagnoses (Choose all that apply): None applicable and VTE VTE Anticoag overlap given w/in hospital stay or rx'd at [place]?: No Pt receive overlap for 5 days?: No Reason overlap not ordered, prescribed, or given for 5 days: Treatment Not Indicated Discharge Plan Admission Admit Date/Time: 05/14/21 16:45 Primary Reason for Your Visit: Right upper lobe segmental PE Attending Provider: Werner Ramirez Primary Care Provider: Eden Shankar Consulting Providers: Mayela Johnson Discharge Orders/Prescriptions Prescriptions: New Eliquis 5 mg tablet 5 mg PO BID Qty: 74 RF: 0 Continued atorvastatin 80 mg tablet 80 mg PO QHS RF: 0 penicillin V potassium 500 mg tablet 500 mg PO 4X/DAY RF: 0 amlodipine 2.5 mg tablet 2.5 mg PO DAILY RF: 0 docusate sodium 100 mg capsule 100 mg PO BID RF: 0 oxycodone 5 mg tablet 5 - 10 mg PO Q4H PRN (Reason: Pain) RF: 0 ropinirole 0.25 mg tablet 0.25 mg PO BID RF: 0 omeprazole 40 mg capsule,delayed release(DR/EC) 40 mg PO BID Qty: 60 RF: 0 Changed acyclovir 400 mg tablet 200 mg PO TID Qty: 0 RF: 0 ropinirole 0.25 mg tablet 0.25 mg PO QHS Qty: 0 RF: 0 baclofen 10 mg tablet 20 mg PO QHS Qty: 0 RF: 0 gabapentin 300 mg capsule 300 mg PO QHS Qty: 0 RF: 0 Held lisinopril-hydrochlorothiazide 20-12.5 mg tablet 1 tab PO BID RF: 0 Hold Instructions: Hold for 1 week and follow with PCP/public health program manager with [facility] and do accordingly meloxicam 15 mg tablet 15 mg PO DAILY RF: 0 Hold Instructions: Hold for 1 week and follow with PCP/public health program manager with [facility] and do accordingly metformin 1,000 mg tablet 500 mg PO DAILY RF: 0 Hold Instructions: Hold for 1 week and follow with PCP/public health program manager with [facility] and do accordingly metformin 1,000 mg tablet 1,000 mg PO DAILY RF: 0 Hold Instructions: Hold for 1 week and follow with PCP/public health program manager with [facility] and do accordingly Discontinued tizanidine 4 mg tablet 10 mg PO QHS RF: 0 aspirin 81 mg tablet,delayed release (DR/EC) 81 mg PO BID RF: 0 pantoprazole 40 mg tablet,delayed release (DR/EC) 40 mg PO DAILY RF: 0 Referrals / Follow Up: Mayela Johnson MD [STAFF PHYSICIAN] - In 1 Week (Follow with [facility] for acute kidney injury) Eden Shankar PA [Primary Care Provider] - In 1 Week Disposition Disposition (needs filled in before D/C Order can be placed): Home, Self Care
[2021-05-15] MEDS: amLODIPine 2.5 MG Tablet PO (09:44)
[2021-05-15] MEDS: Pramipexole Di-HCl 0.125 MG Tablet PO ×2 (09:44→16:45)
[2021-05-15] MEDS: Aspirin E.C. 81 MG Tablet PO ×2 (09:44→16:45)
[2021-05-15] MEDS: Pantoprazole Sodium 40 MG Tablet PO (09:44)
[2021-05-15] MEDS: Docusate Sodium 100 MG Capsule PO (09:44)
[2021-05-15] MEDS: 0.9% Normal Saline 1,000 ML 60 ML IV (09:55)
--- NOTE | 2021-05-15 10:11 | CASEMGMT ---
NATASHA LOJA assessment: Face to Face with patient for initial transition planning/care coordination assessment. NATASHA LOJA introduced self and role at [facility], pt voices understanding and consents to assessment. Pt is sitting up in chair in no distress on room air. Pt is A/Ox4 and answers all questions appropriately. Care providers, pharmacy, and demographics verified. Presentation: Pt was difficult to arouse by /HHC and sats were in the 60s Admitting dx: Hypoxia, PE PCP: Raad Specialists: Brady sanchez-[facility] neuro; diaz Martinez Preferred Pharmacy: [facility] to follow for Eliquis coverage/co-pay Insurance: Martha/MCRA Prescription Benefit: Martha Living Will/HPOA: Pt states has LW/HPOA and is aware that they are not on file at [facility]. LNOK: Inocencio Eamon, Living Arrangements: Pt states lives with in 1 story home with 4 steps in and states no concerns at home. Pt states is independent with ADL's. Transportation: Pt states drives self and states no transportation concerns. DME/HHC: Pt states has crutches and a walker. Pt states no preference for DME company, if pt qualifies for home oxygen at discharge. Pt states is current with [facility] for PT/OT s/p knee surgery last tuesday at [facility]. Pt states no hx of SNF. Pt states no concerns with going home at time of discharge. 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 Pt states does not smoke cigarettes or drink ETOH. Pt states no further concerns/needs. CM to follow for any further discharge planning/needs. Advised pt to ask for CM if any further questions/concerns/needs arise, voices understanding. Pt Goal: Home Plan: Home w/ [facility]. [place] ANTASHA LOJA
--- NOTE | 2021-05-15 10:32 | CASEMGMT ---
Addendum entered by Amna Pappas 05/15/21 12:21: SN added to HHC order as pt is anxious about meds at home. CC notified and new order faxed. Rabia KAUR CM Addendum entered by Amna Pappas 05/15/21 11:31: Pt also to be sent home on Eliquis and med e-scribed to [facility] previously. Call to [facility] to check coverage/co-pay and per tech, cost is $115. Pt provided with Eliquis 30 day free trial card and $10 co-pay card with instruction. Rabia KAUR CM Addendum entered by Amna Pappas 05/15/21 11:28: Per Hua, pt does not qualify for home oxygen. [facility] order, D/C instructions faxed to [facility] at this time. Summary to be faxed once obtained. Rabia KAUR CM Original Note: Call from [facility] requesting [facility] order and d/c summ/instructions when pt discharged. They state pt is active with PT/OT. Rabia KAUR CM
[2021-05-15] MEDS: oxyCODONE 5 MG Tablet PO (11:14)
[2021-05-15 11:18] LABS: Partial Thromboplast Time 67.2 Seconds (24.1-36.2)
[2021-05-15 12:06] LABS: Bedside Glucose 183 mg/dL (70-110)
--- NOTE | 2021-05-15 13:45 | PCM.CONS.R ---
Assessment & Plan Assessment/Plan (1) Acute kidney injury: PLAN: ? baseline creatinine unknown. admitted with 2.8, down to 1.6. was taking NSAIDs prior to admit after recent knee surgery no urinary complaints since cr is better no further work up needed asking to go home. ok from my end. will arrange follow up dc NSAIDs, lisinopril and HCTZ at the time of discharge danica mishra family at bedside HPI Consult Data Date of Consult: 05/15/21 HPI Narrative HPI Narrative: EDWARD VARGAS, is a 66 F who presents to the hospital yesterday with confusion, unresponsiveness. renal consulted for WM. PCP is Aly Shankar here in town. no prior CKD. admit cr 2.8 today 1.6. currently denies any complaints. recent left knee surgery. no urinary complaints. on NSAIDs prior to admit. breathing is ok. ? baseline cr. diagnosed with PE. started on anticoagulation, heparin drip and now eliquis. [facility] Medical History (Updated 05/14/21 @ 21:[address] Elizabeth Greenfield, DO) Degenerative disc disease Depression Diabetes mellitus type 2 in obese Hyperlipidemia Hypertension Osteoarthritis PUD (peptic ulcer disease) Home Medications amlodipine 2.5 mg PO DAILY 05/14/21 [History Last Taken 05/13/21] atorvastatin 80 mg PO QHS 05/14/21 [History Last Taken 05/13/21] docusate sodium 100 mg PO BID 05/14/21 [History Last Taken 05/13/21] lisinopril-hydrochlorothiazide 1 tab PO BID 05/14/21 [History Last Taken 05/13/21] meloxicam 15 mg PO DAILY 05/14/21 [History Last Taken 05/13/21] metformin 1,000 mg PO DAILY 05/14/21 [History Last Taken 05/13/21] metformin 500 mg PO DAILY 05/14/21 [History Last Taken 05/13/21] oxycodone 5 - 10 mg PO Q4H PRN 05/14/21 [History Last Taken 05/13/21] penicillin V potassium 500 mg PO 4X/DAY 05/14/21 [History Last Taken 05/13/21] ropinirole 0.25 mg PO BID 05/14/21 [History Last Taken Unknown] acyclovir 200 mg PO TID #0 tab 05/15/21 [Rx Last Taken 05/13/21] apixaban [Eliquis] 5 mg PO BID #74 tab 05/15/21 [Rx Last Taken Unknown] baclofen 20 mg PO QHS #0 tab 05/15/21 [Rx Last Taken 05/13/21] gabapentin 300 mg PO QHS #0 cap 05/15/21 [Rx Last Taken 05/13/21] omeprazole 40 mg PO BID #60 cap 05/15/21 [Rx Last Taken 05/13/21] ropinirole 0.25 mg PO QHS #0 tab 05/15/21 [Rx Last Taken 05/13/21] Allergy/AdvReac Type Severity Reaction Status Date / Time No Known Allergies Allergy Verified 05/14/21 13:42 Family History (Updated 05/14/21 @ 16:53 by Dee Cooper NP-C) Father Cancer Hypertension Sister Cancer Diabetes Mother Hypertension Diabetes Surgical History (Updated 05/14/21 @ 18:31 by Sweta De Jesus) History of left knee replacement History of tonsillectomy and adenoidectomy Social History Smoking Status: Never smoker alcohol intake: never substance use type: does not use ROS ROS Narrative negative except above Physical Exam Narrative Alert awake oriented x 3 no obvious distress no pallor no icterus no JVD s1s2 no murmurs lungs clear abdomen soft no organomegaly no edema no cyanosis left knee bandaged Lab / Micro Data Result Diagrams: 05/15/21 04:36 05/15/21 04:36 Labs: Laboratory Results - last 24 hr 05/14/21 14:15: WBC 8.5, RBC 3.10 L, Hgb 9.2 L, Hct 29.0 L, MCV 93.5, MCH 29.7, MCHC 31.7 L, RDW Std Deviation 49.7 H, RDW Coeff of Rex 14.6, Plt Count 251, MPV 10.2, Immature Gran % (Auto) 0.400, Neut % (Auto) 79.4 H, Lymph % (Auto) 12.5 L, [place] % (Auto) 7.2, Eos % (Auto) 0.4, Baso % (Auto) 0.1, Absolute Neuts (auto) 6.8, Absolute Lymphs (auto) 1.07, Nucleated RBC % 0 05/14/21 14:15: Sodium 133 L, Potassium 4.3, Chloride 98, Carbon Dioxide 29.0, Anion Gap 6, BUN 33 H, Creatinine 2.63 H, Estim Creat Clear Calc 15.32, Est GFR (MDRD) Af Amer 23 L, Est GFR (MDRD) Non-Af 19 L, BUN/Creatinine Ratio 12.5, Glucose 125 H, Calcium 8.8, Troponin I High Sens 4.5 05/14/21 14:15: B-Natriuretic Peptide 20.5 05/14/21 16:15: PT 14.4, INR 1.2, APTT 37.8 H 05/14/21 21:37: POC Glucose 149 H 05/14/21 22:04: APTT 96.4 H* 05/15/21 04:36: WBC 6.9, RBC 2.96 L, Hgb 8.8 L, Hct 27.8 L, MCV 93.9, MCH 29.7, MCHC 31.7 L, RDW Std Deviation 49.5 H, RDW Coeff of Rex 14.4, Plt Count 227, MPV 10.3, Immature Gran % (Auto) 0.300, Neut % (Auto) 64.7, Lymph % (Auto) 24.4, [place] % (Auto) 8.3, Eos % (Auto) 2.2, Baso % (Auto) 0.1, Absolute Neuts (auto) 4.4, Absolute Lymphs (auto) 1.67, Nucleated RBC % 0 05/15/21 04:36: Sodium 139, Potassium 4.2, Chloride 105, Carbon Dioxide 28.0, Anion Gap 6, BUN 27 H, Creatinine 1.65 H, Estim Creat Clear Calc 51.52, Est GFR (MDRD) Af Amer 40 L, Est GFR (MDRD) Non-Af 33 L, BUN/Creatinine Ratio 16.4, Glucose 130 H, Calcium 8.4 L, Total Bilirubin 0.60, AST 20, ALT 10 L, Alkaline Phosphatase 75, Total Protein 6.3 L, Albumin 2.4 L, Globulin 3.9, Albumin/Globulin Ratio 0.6 L 05/15/21 04:36: APTT 42.1 H 05/15/21 06:45: POC Glucose 127 H 05/15/21 10:53: APTT 67.2 H 05/15/21 11:58: POC Glucose 183 H Rhythm Strip Rhythm Strip: Sinus Tach Rate: 109 Ectopy: None Radiology Impression Chest X-Ray 05/14/21 14:00 IMPRESSION: Normal x-ray examination of the chest. Electronically Signed: Marco A Solares MD at 14:51 EDT , Service support , Chest CTA 05/14/21 14:02 IMPRESSION: Study positive for pulmonary embolism. Nonspecific gallbladder distention. Consider correlation with gallbladder ultrasound. Bilateral thyroid nodules, largest 1.5 cm. Recommend routine thyroid ultrasound if not previously evaluated. Individualized dose optimization techniques were used for this CT. at 1522 Reported and signed by: Dominic Barrios MD Electronically Signed: Dominic Barrios MD at 15:21 EDT Tel , Service support , ADDENDUM: 05/14/21 1559 IMPRESSION: Study positive for pulmonary embolism. Nonspecific gallbladder distention. Consider correlation with gallbladder ultrasound. Bilateral thyroid nodules, largest 1.5 cm. Recommend routine thyroid ultrasound if not previously evaluated. Individualized dose optimization techniques were used for this CT. at 1522 Reported and signed by: Dominic Barrios MD N.B. : The above Results were Read Back by Dominic Barrios MD to Dr. Elizabeth Greenfield MD, and understanding confirmed on 05/14/2021 15:52:10 (ET). Electronically Signed: Dominic Barrios MD at 15:21 EDT Tel , Service support ,
[2021-05-15] MEDS: Ondansetron 4 MG/2 ML Vial IV (17:15)
[2021-05-15 17:36] LABS: Partial Thromboplast Time 57.3 Seconds (24.1-36.2)
== END 2021-05-15 17:55 | disposition home health service (06) | DRG 175 ==
LOC: ED 15:03 → PCU 16:43
PROVIDERS: Family Medicine; Nurse Practitioner Family; Admitting Provider Internal Medicine; Emergency Provider Emergency Medicine; PCP Physician Assistant; Visit Provider Internal Medicine
DX: I26.99 Other pulmonary embolism without acute cor pulmonale (principal); G92 Toxic encephalopathy; N17.9 Acute kidney failure, unspecified; Z68.41 Body mass index [BMI] 40.0-44.9, adult; T42.8X5A Adverse effect of antiparkinsonism drugs and other central muscle-tone depressants, initial encounter; T42.6X5A Adverse effect of other antiepileptic and sedative-hypnotic drugs, initial encounter; Y92.9 Unspecified place or not applicable; R09.02 Hypoxemia; M62.830 Muscle spasm of back; M54.9 Dorsalgia, unspecified; G89.29 Other chronic pain; I25.10 Atherosclerotic heart disease of native coronary artery without angina pectoris; E11.9 Type 2 diabetes mellitus without complications; I10 Essential (primary) hypertension; E78.5 Hyperlipidemia, unspecified; M19.90 Unspecified osteoarthritis, unspecified site; F32.9 Major depressive disorder, single episode, unspecified; E66.01 Morbid (severe) obesity due to excess calories; Z79.84 Long term (current) use of oral hypoglycemic drugs; Z79.899 Other long term (current) drug therapy; Z87.11 Personal history of peptic ulcer disease; Z96.652 Presence of left artificial knee joint
CPT/HCPCS: 36415; 71045; 71275; 80048; 80053; 82962; 83880; 84484; 85025; 85610; 85730; 93005; 97163; 97167; 97802; 99251; 99285; J7030; Q9967; A4216; G0463; J2405

== ENCOUNTER 2023-03-03 16:30 | Outpatient (RCR) | payer BC, SELFPAY ==
--- NOTE | 2023-02-01 18:41 | HP.PTEVAL_ITS ---
Patient's Visit Information EDWARD VARGAS is a 67 year old F referred to Physical Therapy by Dr. Ben Pardo MD with a diagnosis of R hip OA. Date of Evaluation: 02/01/23 Physical Therapist: Abraham Zayas DPT, OCS, CSCS - Visit Plan Frequency: 2x /Week Duration: 4-6 Weeks Plan: 2x/week for 4-6 aquatic therapy for. 1. R hip and knee ROM focussin knee ext and flexion and hip extension. 2. stretch prirformis and quad. 3. strength of hip and knee B to I. 4. calorie burning. work all to I as patient plans to join if helpful and can give stretches and ROM as HEP also. - Subjective R hip hurts. It aches something terrible. has to sleep on it to get any sleep. Needs a new right knee. Got a L TKA 2 yrs ago and got blood clot and nearly so is gunshy. R hip hurts posteriorly. It has hurt for 4-5 months with insidious onset. it was only slightly painful for a long time before then. Worse in the evening. Had previous back surgery and L45 pain on top of hip. Cannot stand very long. Hip x ray and doc thought it was the muscles. 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 Activites include working at home but has to stop often. Basic aDLS dress , bathroom, shower I. Hobbies: Crafts sitting. Exercises : no because it hurts. Avoids R LE on steps, weak. - Pain R hip Pain Intensity (Out of 10): 6 Pain Intensity Range: 6, 9 - Objective R varus at knee and diminished stance time on R due to hip more than knee discomfort. Steps avoids R due to knee and hip pain. R knee AROM -6 to 100, L knee 0-110. Pain endr range R knee. Hip aROM is WFL and symmetrical but end range IR causes some R posterior hip pain, + FADDIR, - THIERRY. Tender glut R and medial joint line R knee. strenth in knees is 4- with flex and extension B but painful R knee ext. ankle strength 4 no pain. Hip strength 3+ ext and abd B, slight discomfort R hip ext, flexion is 4- and no pain. - ant drawer R and - bounce home although it does hurt. - patellar grind. reflexes 0/3 patella and achilles B. Sensation LE WNL to gross light touch. Walking is I and balance is good. trasnfers are I. - Balance/Special Test Scores Lower Extremity Functional Score: 25 - Goals Goal 1:: pt I in appropriate aquatic ex for hip and knee strength adn ROm and calorie burn without increased knee pain Goal Time Frame: 4-6 Weeks Goal 2:: Patient ambulate at work without increased hip pain Goal Time Frame: 4-6 Weeks Goal 3:: Pt feel 50% better overall and pain 0-3/10 at worst. Goal Time Frame: 4-6 Weeks Goal 4:: LEFS 45 Goal Time Frame: 4-6 Weeks - Rehabilitation Potential Physical Therapy Diagnosis: R hip pain from antalgia and hip, knee deficits Rehabilitation Potential: Fair - Anticipated Interventions Patient/Client Instruction: Educate patient on: Condition, Plan of Care For the Purpose of:: To decrease pain, To increase ROM, To improve nutrient delivery to tissue, To improve muscle performance and motor function, To increase tolerance to activity/condition/position, To improve ability of physical actions for home/community/work/leisure Therapeutic Exercise to Include: Strength training, Flexibilty training, Gait and locomotor training, In an aquatic setting, Passive ROM, Active ROM For the Purpose of:: To decrease pain, To decrease swelling/inflammation, To increase ROM, To improve nutrient delivery to tissue, To improve muscle performance and motor function, To increase tolerance to activity/condition/position Thank you for the opportunity to evaluate your patient. For Medicare and Medicare HMO plans, please review the plan of care and approve it. It will need to be FAXED BACK to us at [phone] for Medicare purposes. For Medicare only, by signing this I certify the plan of care. Please let me know if there are questions or concerns regarding this plan of care. Physician Signature: Date:
--- NOTE | 2023-03-03 16:50 | HP.PTDCSUM ---
It has been my pleasure to treat EDWARD VARGAS referred by Dr. Ben Pardo MD, with the diagnosis of R hip OA for a total of 8 visit(s). Discharge Date: 03/03/23 Please see the following information for a summary of their discharge status. Subjective: I really had many good days where I felt good. Pain is still there but more conscious of appropriate positioning when moving. pain this week to 6/10 posterior L hip. Worse with walking and standing. Feels better upon sitting. Sleep is not a problem. Lying on it is more comfortable. Activities at home are close to normal but cannot get in and out of the tub so she just take showers. To doctor in March. HEP: Will do at home. R hip Pain Intensity (Out of 10): 2 % Improvement: 75 Objective/Function: +18 LEFS. walking with R trendelnberg and mild antalgia despite no increased pain while walking today. Steps are weak on R and painful and require UE. Goal 1:: pt I in appropriate aquatic ex for hip and knee strength adn ROm and calorie burn without increased knee pain Goal 2:: Patient ambulate at work without increased hip pain Goal Progress: Progressing Goal 3:: Pt feel 50% better overall and pain 0-3/10 at worst. Goal Progress: Progressing Goal 4:: LEFS 45 Goal Progress: Progressing Plan: d/c to HEP and hopefully community pool Discharge Comments: Pt to continue with home hip and core strength adn possibly join a pool to continue water exercises which she feels comfortable with on her own. If there are questions or concerns regarding this patient's physical therapy, please feel free to call me at [phone]. Thank you for the referral of this patient. Sincerely, Abraham Zayas, DPT, OCS, CSCS Balance/Gait/Functional tests - Balance/Special Test Scores Lower Extremity Functional Score: 43
== END 2023-03-03 19:00 | disposition home or self-care (01) ==
LOC: PT 16:30
PROVIDERS: PCP Physician Assistant; Referring Provider Specialist; Visit Provider Specialist
DX: M16.11 Unilateral primary osteoarthritis, right hip (principal)
CPT/HCPCS: 97113; 97161; 97164